=== PATIENT | male | born 1975 | race Two or more races ===

== ENCOUNTER 2019-11-06 17:28 | Inpatient (IN) | payer MEDICARE ==
[~2019-11-06] VITALS: Ht 185.4 cm; Wt 120.0 kg
[~2019-11-06 17:28] MED LIST: FURO20TA3 PO; FURO40TA6 PO; LACT20SO13 PO; LISI-170; MAGN70TA2 PO; MILK1POW PEG; MULTIVITAMIN; POTA20TA6 PO; PRED15SO3 PO; PROPOFOL 10 MG/ML, 20ML ONE; RIFA550T4 PO; SPIR25TA PO; SPIR50TA PO; [UNRECOGNIZED DRUG - OTHER]
[2019-11-06 18:43] LABS: BASOPHILS # (AUTO) 0.12 x10^3/uL (0-0.1); BASOPHILS % (AUTO) 1 % (0-1); EOSINOPHILS # (AUTO) 0.15 x10^3/uL (0-0.4); EOSINOPHILS % (AUTO) 2 % (1-7); LYMPHOCYTES # (AUTO) 1.18 x10^3/uL (1-3.4); LYMPHOCYTES % (AUTO) 14 % (22-44); MD NO; MEAN CORPUSCULAR HEMOGLOBIN 31.1 pg (27.5-34.5); MEAN CORPUSCULAR HGB CONC 32.9 g/dL (33.2-36.2); MEAN PLATELET VOLUME 9.5 fL (7.4-10.4); MONOCYTES % (AUTO) 5 % (2-9); NEUTROPHILS # (AUTO) 6.54 x10^3/uL (1.8-6.8); NEUTROPHILS % (AUTO) 78 % (42-75); PLATELET COUNT 146 x10^3/uL (130-400); RED CELL DISTRIBUTION WIDTH 17.8 % (9.4-14.8)
[2019-11-06 18:49] LABS: ALANINE AMINOTRANSFERASE 18 U/L (12-78); ALBUMIN 2.9 g/dL (3.4-5.0); ANION GAP 6 mmol/L (5-15); CALCIUM 8.9 mg/dL (8.5-10.1); CHLORIDE 108 mmol/L (98-107); CREATININE 1.38 mg/dL (0.7-1.3)
[2019-11-06 18:51] LABS: ALKALINE PHOSPHATASE 85 U/L (45-117); BILIRUBIN,TOTAL 2.1 mg/dL (0.2-1.0); TOTAL PROTEIN 7.5 g/dL (6.4-8.2)
--- NOTE | 2019-11-06 19:22 | NUR ---
PT AMBULATED TO ROOM 15, A&OX4, C/O BLACK STOOL TODAY AND ABD PAIN. PT ABDOMINAL PROCEDURE ON 10/16 FOR SIMILAR ISSUE, WAS ADMITTED FOR 1.5 WEEKS AT THAT TIME FOR SOME COMPLICATIONS. PT STATES HE TOOK LACULOSE NEON TUBE BENDER AND WAS TOLD BY GI MD TO COME TO ER.
[2019-11-06] MEDS ORDERED: PANTOPRAZOLE 80 MG in SODIUM CHLORIDE 0.9% 50 ML IVPB ONE (19:27)
[2019-11-06] MEDS ORDERED: OCTREOTIDE 100MCG/ML, 1ML (0.1MG/ML) IV ONE (19:30)
[2019-11-06] MEDS ORDERED: SODIUM CHLORIDE FLUSH 10ML SYR IVF ONE (19:30)
[2019-11-06] MEDS ORDERED: OCTREOTIDE 500 MCG in SODIUM CHLORIDE 0.9% 99 ML IV PRN ×2 (19:30→20:30)
--- NOTE | 2019-11-06 19:30 | NUR ---
BS REPORT REX MAXWELL. FIRST CONTACT WITH PT: RESTING IN RNEY, SKIN COLOR WARM AND DRY WNL, PULSES 2+, GROSS NEURO INTACT, CMS INTACT. AT BS. PT REPORTS DARK STOOL BOWEL MOVEMENT EARLIER. DENIES DIZZINESS AT THIS TIME. PT STATES HE WAS HERE RECENTLY FOR VARICIES REPAIR. PT ON ECG, BP AND SPO2 MONITORING. WCTM.
[2019-11-06] MEDS ORDERED: OCTREOTIDE 100MCG/ML, 1ML (0.1MG/ML) ONE (19:39)
[2019-11-06] MEDS ORDERED: PANTOPRAZOLE 40 MG IV ONE (19:39)
[2019-11-06] MEDS: PANTOPRAZOLE 80 MG in SODIUM CHLORIDE 0.9% 100 ML IV SCH ×2 (19:56→20:30)
[2019-11-06] MEDS ORDERED: D5%-0.45% NACL 1,000 ML IV SCH (20:19)
[2019-11-06 20:21] LABS: INTERNATIONAL NORMALIZED RATIO 1.17 (0.93-1.1); PROTHROMBIN TIME 12.4 Seconds (9.6-11.5)
[2019-11-06] MEDS ORDERED: BISACODYL 10 MG SUPP PR PRN (20:30)
[2019-11-06] MEDS ORDERED: morphine SULFATE 10 MG/ML, 1ML IVPush PRN (20:30)
[2019-11-06] MEDS ORDERED: POLYETHYLENE GLYCOL 17 GM PACKET PO PRN (20:30)
[2019-11-06] MEDS ORDERED: MELATONIN 5 MG TABLET PO PRN (20:30)
[2019-11-06] MEDS: PIPERACILLIN/TAZO/PMX 3.375GM 50 ML IV SCH (20:30)
[2019-11-06] MEDS ORDERED: ONDANSETRON 2MG/ML, 2ML IVPush PRN (20:30)
--- NOTE | 2019-11-06 20:54 | NUR ---
PT RESTING IN [facility], MEDICATED PER JUN, MOM AT , DENIES ADDITIONAL NEEDS AT THIS TIME. VSS, SLIGHT TACHY ON MONITOR AT 108. WCTM. WAITING ON ADMIT BED.
[2019-11-06] MEDS ORDERED: PIPERACILLIN/TAZO/PMX 3.375GM 50 ML ONE (21:07)
--- NOTE | 2019-11-06 21:50 | NUR ---
RN SPOKE TO PHILIPP MENDIOLA REGARDING FLUIDS SWITCH AND MAURY OKAY'D ADMINISTRATION OF ORAL MEDICATION. RN WCTM. PT CONDITION UNCHANGED, WAITING ON ADMIT.
[2019-11-06] MEDS: SODIUM CHLORIDE 0.9% 1,000 ML IV SCH (21:59)
[2019-11-06] MEDS: RIFAXIMIN 550 MG TABLET PO SCH (23:12)
--- NOTE | 2019-11-06 23:49 | NUR ---
PT MEDICATED PER JUN, MYLES CORONA WALKED TO LAB BY RN. PT RESTING IN [facility] RECLINED LISTENING TO BOOK ON TAPE, CALL LIGHT ON LAP, NAD, NO CHANGE IN ACUTE CONDITION, DENIES ADDITIONAL NEEDS AT THIS TIME. STATES "THIS BED IS DIABOLICAL." RN ORDER PT HOSPITAL BED. WCTM. WAITING FOR ADMIT BED.
--- NOTE | 2019-11-07 00:55 | NUR ---
PT RESTING IN GURNEY, BOOK ON TAPE PLAYING, EYES CLOSED, LIGHTS DIMMED FOR COMFORT, NAD, NO OTHER CHANGE IN CONDITION NOTED. WCTM. WAITING ON ADMIT BED.
--- NOTE | 2019-11-07 01:51 | NUR ---
Hospital bed ordered by
--- NOTE | 2019-11-07 02:21 | NUR ---
PT RESTING IN [facility], NO CHANGE IN PT CONDITION, WAITING FOR ADMIT BED. WAITING ON HOSPITAL BED, WCTM.
--- NOTE | 2019-11-07 02:52 | NUR ---
MT RECALLED FOR HOSPITAL BED. PT CONDITION UNCHANGED, WCTM.
--- NOTE | 2019-11-07 03:30 | NUR ---
PT AMBULATED TO AND FROM RESTROOM WITH A SMOOTH AND STEADY GAIT, PT MOVED ONTO HOSPITAL BED FOR COMFORT, PT VSS, NO CHANGE IN CONDITION, WCTM. WAITING FOR ADMIT BED.
[2019-11-07 04:15] LABS: BASOPHILS # (AUTO) 0.09 x10^3/uL (0-0.1); BASOPHILS % (AUTO) 1 % (0-1); EOSINOPHILS # (AUTO) 0.12 x10^3/uL (0-0.4); EOSINOPHILS % (AUTO) 2 % (1-7); LYMPHOCYTES # (AUTO) 0.97 x10^3/uL (1-3.4); LYMPHOCYTES % (AUTO) 14 % (22-44); MD NO; MEAN CORPUSCULAR HGB CONC 33.7 g/dL (33.2-36.2); MEAN PLATELET VOLUME 9.4 fL (7.4-10.4); MONOCYTES # (AUTO) 0.35 x10^3/uL (0.2-0.8); MONOCYTES % (AUTO) 5 % (2-9); NEUTROPHILS # (AUTO) 5.35 x10^3/uL (1.8-6.8); NEUTROPHILS % (AUTO) 78 % (42-75); PLATELET COUNT 102 x10^3/uL (130-400); RED BLOOD COUNT 2.46 x10^6/uL (4.38-5.82); RED CELL DISTRIBUTION WIDTH 17.4 % (9.4-14.8)
[2019-11-07 04:23] LABS: ALANINE AMINOTRANSFERASE 15 U/L (12-78); ALBUMIN 2.3 g/dL (3.4-5.0); ANION GAP 7 mmol/L (5-15); CALCIUM 7.9 mg/dL (8.5-10.1); CHLORIDE 109 mmol/L (98-107); CREATININE 1.39 mg/dL (0.7-1.3)
[2019-11-07 04:25] LABS: ALKALINE PHOSPHATASE 64 U/L (45-117); BILIRUBIN,TOTAL 2.2 mg/dL (0.2-1.0); TOTAL PROTEIN 6.3 g/dL (6.4-8.2)
[2019-11-07] MEDS: PIPERACILLIN/TAZO/PMX 3.375GM 50 ML IV SCH (04:30)
--- NOTE | 2019-11-07 04:30 | NUR ---
PT RESTING ON HOSPITAL BED, EYES CLOSED, RESP HEARD AND WNL, CONDITION UNCHANGED. WCTM. WAITING ON ADMIT BED.
[2019-11-07] MEDS: PANTOPRAZOLE 80 MG in SODIUM CHLORIDE 0.9% 100 ML IV SCH ×2 (05:27→06:12)
--- NOTE | 2019-11-07 05:35 | NUR ---
LATE ENTRY: PT RESTING ON HOSPITAL BED, EYES CLOSED, RESP HEARD AND WNL, CONDITION UNCHANGED. WCTM. WAITING ON ADMIT BED.
[2019-11-07] MEDS ORDERED: PIPERACILLIN/TAZO/PMX 3.375GM 50 ML ONE (06:13)
--- NOTE | 2019-11-07 06:26 | NUR ---
PT MEDICATED PER MAR, VSS, NAD, CONDITION UNCHANGED, DENIES ADDITIONAL NEEDS AT THIS TIME, WCTM. WAITING ON ADMIT BED.
--- NOTE | 2019-11-07 07:04 | NUR ---
REPORT TO DANIELE MAXWELL, PT CARE TRANSFERRED AT THIS TIME.
[2019-11-07] MEDS ORDERED: LIDOCAINE 1%, 10ML ONE (07:10)
--- NOTE | 2019-11-07 07:27 | NUR ---
report given to Endo team. pt going for paracentesis at this time.
[2019-11-07] MEDS ORDERED: CHLORHEXIDINE 15 ML UDC ONE (08:05)
--- NOTE | 2019-11-07 08:21 | NUR ---
PT REMAINS OUT OF ROOM FOR PROCEDURES.
--- NOTE | 2019-11-07 08:51 | NUR ---
REPORT FROM DANIELE MAXWELL. PT AT PROCEDURE.
[2019-11-07] MEDS ORDERED: ALBUMIN HUMAN 25% 100 ML IV ONE (11:00)
[2019-11-07] MEDS: LACTULOSE 20 GM/30 ML UDC PO SCH (13:35)
[2019-11-07] MEDS: CEFTRIAXONE PMX 2GM/50ML 50 ML IV SCH (13:35)
[2019-11-07] MEDS: PANTOPRAZOLE 40 MG IV IVPush SCH (13:35)
[2019-11-07] MEDS: SPIRONOLACTONE 100 MG TABLET PO SCH (13:36)
[2019-11-07] MEDS: FUROSEMIDE 40 MG TABLET PO SCH (13:36)
[2019-11-07] MEDS: RIFAXIMIN 550 MG TABLET PO SCH ×2 (13:37→20:40)
[2019-11-07] MEDS: SENNA/DOCUSATE TABLET PO SCH (13:37)
[2019-11-07 15:16] VITALS: BP 103/65
[2019-11-07] MEDS: SODIUM CHLORIDE 0.9% 1,000 ML IV SCH (18:00)
[2019-11-07 20:37] VITALS: BP 111/73
[2019-11-08 01:10] VITALS: BP 108/64
[2019-11-08] MEDS: PANTOPRAZOLE 40 MG IV IVPush SCH (02:02)
[2019-11-08 06:08] LABS: MEAN CORPUSCULAR HEMOGLOBIN 31.5 pg (27.5-34.5); MEAN CORPUSCULAR HGB CONC 32.9 g/dL (33.2-36.2); RED BLOOD COUNT 2.49 x10^6/uL (4.38-5.82); RED CELL DISTRIBUTION WIDTH 17.5 % (9.4-14.8)
[2019-11-08 06:14] LABS: ANION GAP 7 mmol/L (5-15); CALCIUM 8.2 mg/dL (8.5-10.1); CHLORIDE 110 mmol/L (98-107); CREATININE 1.31 mg/dL (0.7-1.3)
[2019-11-08 06:37] LABS: BASOPHILS # (AUTO) 0.11 x10^3/uL (0-0.1); BASOPHILS % (AUTO) 2 % (0-1); EOSINOPHILS # (AUTO) 0.18 x10^3/uL (0-0.4); EOSINOPHILS % (AUTO) 3 % (1-7); LYMPHOCYTES # (AUTO) 0.89 x10^3/uL (1-3.4); LYMPHOCYTES % (AUTO) 14 % (22-44); MD SCAN; MEAN PLATELET VOLUME 9.6 fL (7.4-10.4); MONOCYTES # (AUTO) 0.36 x10^3/uL (0.2-0.8); MONOCYTES % (AUTO) 6 % (2-9); NEUTROPHILS # (AUTO) 4.93 x10^3/uL (1.8-6.8); NEUTROPHILS % (AUTO) 76 % (42-75); PLATELET COUNT 86 x10^3/uL (130-400)
[2019-11-08 08:07] VITALS: BP 102/68
[2019-11-08] MEDS: RIFAXIMIN 550 MG TABLET PO SCH (08:07)
[2019-11-08] MEDS: FUROSEMIDE 40 MG TABLET PO SCH (08:07)
[2019-11-08] MEDS: SENNA/DOCUSATE TABLET PO SCH (08:07)
[2019-11-08] MEDS: SPIRONOLACTONE 100 MG TABLET PO SCH (08:07)
[2019-11-08] MEDS: LACTULOSE 20 GM/30 ML UDC PO SCH (08:07)
[2019-11-08] MEDS ORDERED: POTASSIUM CHLORIDE 20 MEQ TAB.ER.PRT PO SCH (09:30)
[2019-11-08] MEDS ORDERED: PROPRANOLOL 10 MG TABLET PO SCH (11:30)
[2019-11-08] MEDS ORDERED: PROP20TA PO (11:40)
[2019-11-08] MEDS ORDERED: OMEP-110 PO (11:41)
[2019-11-08] MEDS ORDERED: CIPR500T3 PO (11:42)
[2019-11-08] MEDS: CEFTRIAXONE PMX 2GM/50ML 50 ML IV SCH (11:49)
[2019-11-08] MEDS ORDERED: PANTOPRAZOLE 40MG TABLET PO SCH (16:30)
== END 2019-11-08 14:25 | disposition home or self-care (01) | DRG 432 ==
LOC: ED 19:20 → EDIP 19:29 → ED 20:31 → 5SO 11-07 10:17 → DCLOUNGE 11-08 14:00
PROVIDERS: ADMIT Internal Medicine; ATTEND Hospitalist
PROC: 06L38CZ Occlusion of Esophageal Vein with Extraluminal Device, Via Natural or Artificial Opening Endoscopic (ICD-10-PCS; principal; 2019-11-07 08:00)
DX: K70.31 Alcoholic cirrhosis of liver with ascites (principal); I85.11 Secondary esophageal varices with bleeding; I21.4 Non-ST elevation (NSTEMI) myocardial infarction; K76.6 Portal hypertension; D62 Acute posthemorrhagic anemia; G61.0 Guillain-Barre syndrome; R18.8 Other ascites; N17.9 Acute kidney failure, unspecified; E44.0 Moderate protein-calorie malnutrition; E87.2 Acidosis; K80.20 Calculus of gallbladder without cholecystitis without obstruction; D69.6 Thrombocytopenia, unspecified; R79.89 Other specified abnormal findings of blood chemistry; K72.90 Hepatic failure, unspecified without coma; Z79.899 Other long term (current) drug therapy; Z88.8 Allergy status to other drugs, medicaments and biological substances; Z83.3 Family history of diabetes mellitus; Z88.7 Allergy status to serum and vaccine; Z68.34 Body mass index [BMI] 34.0-34.9, adult; N18.2 Chronic kidney disease, stage 2 (mild); Z03.818 Encounter for observation for suspected exposure to other biological agents ruled out
CPT/HCPCS: 36415; 49083; 71045; 80048; 80053; 85014; 85018; 85025; 85610; 86850; 86900; 87635; G0378; J0696; J2354; J2543; J2704; P9047; C9113; J7030

== ENCOUNTER → 2019-12-01 | Outpatient (CLI) | payer MEDICARE ==
[~2019-12-01] MED LIST changes: +CIPR500T3 PO; +OMEP-110 PO; +PROP20TA PO; -PROPOFOL 10 MG/ML, 20ML ONE; +REGADENOSON 0.4 MG/5 ML SYRINGE ONE
== END | disposition home or self-care (01) ==
LOC: CFH 07:58
PROVIDERS: ATTEND Internal Medicine Clinical Cardiac Electrophysiology
DX: I25.9 Chronic ischemic heart disease, unspecified (principal); I21.4 Non-ST elevation (NSTEMI) myocardial infarction
CPT/HCPCS: 78452; 93017; A9502; J2785

== ENCOUNTER 2020-08-10 11:49 | Outpatient (CLI) | payer MEDICARE, OTHER ==
[~2020-08-10 11:49] MED LIST changes: -CIPR500T3 PO; +CIPR500T4 PO; -REGADENOSON 0.4 MG/5 ML SYRINGE ONE
[2020-08-10] MEDS ORDERED: LIDOCAINE 1%, 10ML ONE (12:07)
== END 2020-08-10 23:59 | disposition home or self-care (01) ==
LOC: RAD 11:49
PROVIDERS: ATTEND Internal Medicine Gastroenterology
DX: R18.8 Other ascites (principal); F12.90 Cannabis use, unspecified, uncomplicated; Z79.2 Long term (current) use of antibiotics; Z79.899 Other long term (current) drug therapy; Z72.89 Other problems related to lifestyle; Z88.7 Allergy status to serum and vaccine
CPT/HCPCS: 49083